=== PATIENT | female | born 1975 | race Asian ===

== ENCOUNTER 2018-03-20 10:07 | Outpatient (CLI) | payer OTHER ==
[2018-03-20 10:51] LABS: BILIRUBIN,URINE NEGATIVE (NEGATIVE); BLOOD, URINE 2+ (NEGATIVE); CLARITY/URINE CLEAR (CLEAR); COLOR,URINE YELLOW (YELLOW); GLUCOSE,URINE NEGATIVE (NEGATIVE); KETONES,URINE NEGATIVE (NEGATIVE); LEUKOCYTE ESTERASE ,URINE 2+ (NEGATIVE); NITRITE, URINE NEGATIVE (NEGATIVE); PROTEIN URINE NEGATIVE (NEGATIVE); UROBILINOGEN,URINE 0.2 (0.2-1.0)
[2018-03-20 10:59] LABS: HEMATOCRIT 37.8 % (36-48); HEMOGLOBIN 12.9 g/dL (12.0-16.0); MEAN CORPUSCULAR HEMOGLOBIN 31 pg (27-31); MEAN CORPUSCULAR HGB CONC 34 % (32-36); MEAN CORPUSCULAR VOLUME 89 fL (79.0-98.0); PLATELET COUNT (AUTO) 446 K/uL (130-430); RED BLOOD CELL COUNT(AUTO) 4.23 MIL/uL (4.2-6.2); RED CELL DISTRIBUTION WIDTH 12.5 % (9.0-15.0); WHITE BLOOD COUNT (AUTO) 5.3 K/uL (4.8-10.8)
[2018-03-20 11:00] LABS: CREATININE 0.94 mg/dL (0.55-1.30); POTASSIUM 3.8 mmol/L (3.5-5.1)
[2018-03-20 11:04] LABS: INR 0.9 (0.8-1.2); PROTHROMBIN TIME 9.4 SECS (9.5-12.5)
[2018-03-20 11:10] LABS: BACTERIA,URINE FEW /HPF (None Seen); MUCUS,URINE None Seen /LPF (None Seen); WBC,URINE 20-50 /HPF (0-3); YEAST,URINE None Seen /HPF (None Seen)
[2018-03-20 11:24] LABS: CALCIUM 9.5 mg/dL (8.4-11.0)
[2018-03-20 13:15] LABS: BAND % (MANUAL) 2 % (0-6); BASOPHILS % (MANUAL) 0 % (0-2); EOSINOPHILS % (MANUAL) 0 % (0-7); LYMPHOCYTES % (MANUAL) 42 % (20-46); MONOCYTES % (MANUAL) 5 % (0-11)
== END 2018-03-20 19:39 | disposition home or self-care (01) ==
LOC: SCA 10:07
PROVIDERS: ATTEND Urology
DX: Z01.818 Encounter for other preprocedural examination (principal); R05 Cough
CPT/HCPCS: 36415; 71046-TC; 80048; 81000-TC; 85007; 85027; 85610-TC; 85730-TC; 87086; 93005

== ENCOUNTER 2018-05-14 12:52 | Outpatient (CLI) | payer OTHER | END 2018-05-14 21:34 | disposition home or self-care (01) | LOC: SCT 12:52 | PROVIDERS: ATTEND Urology | DX: N13.2 Hydronephrosis with renal and ureteral calculous obstruction (principal) ==

== ENCOUNTER 2018-05-28 10:12 | Outpatient (CLI) | payer OTHER | END 2018-05-28 20:04 | disposition home or self-care (01) | LOC: SLB 10:12 → SRD 20:04 | PROVIDERS: ATTEND Urology | DX: N20.0 Calculus of kidney (principal) ==

== ENCOUNTER 2019-01-06 07:57 | Outpatient (CLI) | payer OTHER ==
[~2019-01-06] VITALS: Ht 160 cm; Wt 50.3 kg
[2019-01-06] MEDS ORDERED: FUROSEMIDE 20 MG/2 ML VIAL IVP ONE (08:15)
== END 2019-01-06 21:00 | disposition home or self-care (01) ==
LOC: SNM 07:57
DX: N13.30 Unspecified hydronephrosis (principal)
CPT/HCPCS: 78709; A9562; J1940

== ENCOUNTER 2019-07-21 09:21 | Outpatient (CLI) | payer OTHER ==
[~2019-07-21] VITALS: Ht 30.5 cm; Wt 0.5 kg
[2019-07-21] MEDS ORDERED: FUROSEMIDE 20 MG/2 ML VIAL IVP ONE (10:00)
== END 2019-07-21 17:57 | disposition home or self-care (01) ==
LOC: SNM 09:21
DX: N13.30 Unspecified hydronephrosis (principal)
CPT/HCPCS: 78709; A9562; J1940